=== PATIENT | male | born 1950 | race Caucasian/White ===

== ENCOUNTER → 2017-05-29 | Outpatient (CLI) | payer BC ==
--- NOTE | 2017-05-29 16:47 | RAD ---
Foot x-rays Indication: Medial heel pain for one week. Technique: 3 views of the right foot Comparison: None Findings: No acute fracture or dislocation. No soft tissue abnormal mobility. Very small dorsal calcaneal spur. Impression: No acute findings.
== END | disposition home or self-care (01) ==
LOC: DXRAD 10:07
PROVIDERS: ATTEND Nurse Practitioner Family
DX: M77.31 Calcaneal spur, right foot (principal)
CPT/HCPCS: 73630

== ENCOUNTER → 2019-05-15 | Outpatient (CLI) | payer BC, MEDICARE ==
--- NOTE | 2019-05-15 10:38 | RAD ---
CT STUDY OF THE ABDOMEN AND PELVIS WITHOUT CONTRAST CLINICAL INDICATIONS: Right flank and lower quadrant abdominal pain. TECHNIQUE: Noncontrast helical CT scanning of the abdomen and pelvis was performed. Without contrast, the sensitivity to detect organ pathology and GI tract pathology is decreased. PQRS compliance Statement One or more of the following individualized dose reduction techniques were utilized for this study: 1. Automated exposure control 2. Adjustment of the mA and/or kV according to patient size 3. Use of iterative reconstruction technique COMPARISON: None available. FINDINGS: The liver and spleen and pancreas are homogeneous in appearance on this noncontrast study. The spleen is not enlarged. The gallbladder is normal and no extrahepatic biliary ductal dilatation is seen. No adrenal mass is evident. Right-sided hydronephrosis and hydroureter is seen down to the UVJ. There is a stone at the UVJ level of the urinary bladder which measures 7 mm in size. No hydronephrosis or hydroureter is seen on the left side. Additional small stones of the right kidney are seen. No stone of the left kidney is evident. No renal mass is seen on either side on this noncontrast study. Urinary bladder wall is smooth. No obstructive bowel pattern is evident. No free fluid or free air or mesenteric edema is seen. No focal aneurysmal dilatation of the abdominal aorta is seen. No enlarged abdominal or pelvic adenopathy is evident. No lung base consolidation is evident. Bone island of the posterior medial aspect of the left iliac bone is seen. No lytic process is seen. IMPRESSION: Mild right-sided hydronephrosis and moderate right-sided hydroureter due to a 7 mm stone at the UVJ. Electronically signed by: Lonnie Mauro MD (05/15/2019 10:35 AM) [facility]
== END | disposition home or self-care (01) ==
LOC: CT 08:48
PROVIDERS: ATTEND Specialist
DX: N13.4 Hydroureter (principal); N13.30 Unspecified hydronephrosis; N23 Unspecified renal colic
CPT/HCPCS: 74176

== ENCOUNTER → 2019-11-22 | Outpatient (CLI) | payer BC, MEDICARE ==
--- NOTE | 2019-11-22 13:25 | RAD ---
KUB without comparison for renal stones. FINDINGS: There is scattered abdominal bowel gas in a nonobstructive pattern. No renal or ureteral calculi identified. Calcific density projecting in the left iliac bone at the level of the SI joint is seen to be a sclerotic bone island on the prior CT scan. Several phleboliths are present in the pelvis. IMPRESSION: 1. No radiographically evident urinary tract calculi. Electronically signed by: Humberto Mckeon MD (11/22/2019 1:22 PM) [id number]
== END ==
LOC: DXRAD 10:16
DX: N20.0 Calculus of kidney (principal); I87.8 Other specified disorders of veins
CPT/HCPCS: 74018

== ENCOUNTER → 2020-12-08 | Outpatient (CLI) | payer MEDICARE, BC ==
--- NOTE | 2020-12-08 08:38 | RAD ---
EXAM: ABDOMEN ONE VIEW. HISTORY: Renal stones. COMPARISON: 11/22/2019, 05/15/2019. FINDINGS: A frontal view of the abdomen is obtained. There is a 5 mm calculus in the right renal lowe r pole. There are no distended small bowel loops. There is gas distally. A bone island projects over the left medial iliac bone. IMPRESSION: 1. 5 mm right renal calculus. Electronically signed by: Alycia Skinner MD (12/08/2020 8:36 AM) [id number]
== END ==
LOC: RAD 08:09
DX: N20.0 Calculus of kidney (principal)
CPT/HCPCS: 74018

== ENCOUNTER → 2021-06-16 | Outpatient (CLI) | payer MEDICARE ==
--- NOTE | 2021-06-17 15:40 | RAD ---
Abdomen single view: Reason for examination: Follow-up kidney stone. Comparison is made to previous abdominal examination dated 11/29/[address] examination dated 05/15/20 19. There is no gross organomegaly. Psoas muscles are symmetric. The bowel gas pattern is nonspecific. Th ere continues be a faint 4 mm calculus in the lower pole of the right kidney unchanged. There also co ntinue to be calcifications probably representing phleboliths in the pelvis bilaterally which are sta ble. Bone island is again seen medially in the left iliac bone. No acute bony abnormalities are seen. IMPRESSION: Continued presence of a faint 4 mm calculus in the lower pole the right kidney. Nonspecific nonobstructive bowel gas pattern. Electronically signed by: Magdalena Alatorre MD (06/17/2021 3:37 PM) [id number]
== END ==
LOC: RAD 10:37
DX: N20.0 Calculus of kidney (principal)
CPT/HCPCS: 74018